=== PATIENT | female | born 1945 | race Native Hawaiian/Other Pacific Islander ===

== ENCOUNTER 2018-10-20 07:01 | Inpatient (IN) | payer MEDICARE ==
[2018-10-20] MEDS ORDERED: Iohexol 240 (50 ml) PO STA (07:41)
[2018-10-20] MEDS ORDERED: Sodium Chloride 0.9% 1,000 ML IV STA (07:41)
[2018-10-20] MEDS ORDERED: Sodium Chloride 0.9% 1,000 ML ONE (08:23)
[2018-10-20] MEDS ORDERED: Iohexol 240 (50 ml) ONE (08:24)
[2018-10-20 08:36] LABS: BASO % 0.2 % (0.0-2.0); EOS % 0.2 % (0.0-4.0); LYMPH # 1.9 K/uL (1.0-4.3); LYMPH % 12.9 % (20.0-40.0); MEAN CELL VOLUME 94.9 fL (81.0-99.0); MEAN CORPUSCULAR HEMOGLOBIN 29.6 pg (27.0-31.0); MEAN CORPUSCULAR HGB CONC 31.2 g/dL (33.0-37.0); MEAN PLATELET VOLUME 7.9 fL (7.2-11.7); MONO # 1.5 K/uL (0.0-0.8); MONO % 10.2 % (0.0-10.0); NEUT % 76.5 % (50.0-75.0); RBC 4.37 Mil/uL (3.80-5.20); RED CELL DISTRIBUTION WIDTH 13.2 % (11.5-14.5); WHITE BLOOD COUNT 14.4 K/uL (4.8-10.8)
[2018-10-20 08:46] LABS: ALB/GLOB RATIO 1.1 (1.0-2.1); ALBUMIN 4.1 g/dL (3.5-5.0); ALT/SGPT 37 U/L (9-52); AST/SGOT 34 U/L (14-36); BLOOD UREA NITROGEN 17 mg/dL (7-17); CALCIUM 9.2 mg/dl (8.6-10.4); GFR NON-AFRICAN AMERICAN > 60; LIPASE 111 U/L (23-300)
[2018-10-20 08:57] LABS: SQUAMOUS EPITHIAL 16 /hpf (0-5); URINE BACTERIA MANY (<OCC); URINE BILIRUBIN NEGATIVE (NEGATIVE); URINE BLOOD 3+ (NEGATIVE); URINE CLARITY Hazy (Clear); URINE COLOR Yellow (YELLOW); URINE GLUCOSE (UA) NORMAL (Normal); URINE LEUKOCYTE ESTERASE 3+ Leu/uL (Negative); URINE PROTEIN 2+ mg/dL (NEGATIVE); URINE UROBILINOGEN NORMAL mg/dL (0.2-1.0)
[2018-10-20] MEDS ORDERED: Iodixanol 320 MG/ML 100 ML BOTTLE IV ONE (09:05)
[2018-10-20] MEDS ORDERED: Enoxaparin 40 mg Syringe SC SCH (10:00)
--- NOTE | 2018-10-20 10:22 | CT ---
CT abdomen and pelvis HISTORY: Abdominal pain. COMPARISON: None available. Technique: Multiple contiguous axial images were performed through the abdomen and pelvis with the use of intravenous contrast. Subsequently, sagittal and coronal reformatted images were obtained. This CT exam was performed using one or more of the following dose reduction techniques: Automated exposure control, adjustment of the mA and/or kV according to patient size, and/or use of iterative reconstruction technique. Findings: Scattered atelectasis at the lung bases. No pleural or pericardial effusion. Fatty infiltration of the liver. Distended gallbladder. Punctate hypodensities in the spleen, too small to adequately characterize. Splenule. Nodularity of the adrenal glands. Pancreas is preserved. Small hiatal hernia. Right kidney: Peripheral ill-defined areas of low attenuation seen within the right renal parenchymal cortex with associated perinephric fat stranding suggestive for an acute pyelonephritis. Clinical correlation. No calculi or hydronephrosis. Left Kidney: No calculi or hydronephrosis. Thick-walled urinary bladder which may represent an underlying cystitis. Under distended left hemicolon. Fecal retention in the right hemicolon. Appendix not well identified. Few shotty para-aortic and inguinal lymph nodes. Few shotty mesenteric lymph nodes. Degenerative changes in the spine. Impression: 1. Peripheral ill-defined areas of low attenuation seen within the right renal parenchymal cortex with associated perinephric fat stranding suggestive for an acute pyelonephritis. Clinical correlation. 2. Thick-walled urinary bladder which may represent an underlying cystitis. Clinical correlation. 3. Fatty infiltration of the liver. Additional findings as above.
--- NOTE | 2018-10-20 10:49 | C.PDOC ---
History Of Present Illness 73 y/o female comes in complaining of dysuria, pelvic discomfort, abdominal discomfort, vomiting, and chills for the past 6 days, worsened for the last 2. Patient denies any fever, diarrhea, vaginal discharge or bleeding, or back pain. Patient has no other complaints. Time Seen by Provider: 10/20/18 07:15 Chief Complaint (Nursing): Abdominal Pain History Per: Patient History/Exam Limitations: no limitations Onset/Duration Of Symptoms: Days Current Symptoms Are (Timing): Still Present Past Medical History Reviewed: Historical Data, Nursing Documentation, Vital Signs Vital Signs: Last Vital Signs Temp 98.4 F 10/20/18 07:11 Pulse 89 10/20/18 07:11 Resp 16 10/20/18 07:11 BP 147/74 10/20/18 07:11 Pulse Ox 100 10/20/18 07:11 - Medical History PMH: HTN Family History: States: No Known Family Hx - Social History Hx Alcohol Use: Yes Hx Substance Use: No - Immunization History Hx Tetanus Toxoid Vaccination: No Hx Influenza Vaccination: Yes Hx Pneumococcal Vaccination: No Review Of Systems Except As Marked, All Systems Reviewed And Found Negative. Constitutional: Positive for: Chills. Negative for: Fever Gastrointestinal: Positive for: Vomiting, Other (abdominal discomfort). Negative for: Diarrhea Genitourinary: Positive for: Dysuria, Other (Pelvic discomfort). Negative for: Vaginal Discharge, Vaginal Bleeding Musculoskeletal: Negative for: Back Pain Physical Exam - Physical Exam Appears: Non-toxic, No Acute Distress Skin: Warm, Dry Head: Atraumatic, Normacephalic Eye(s): bilateral: Normal Inspection Oral Mucosa: Moist Neck: Supple Cardiovascular: Rhythm Regular, No Murmur Respiratory: Normal Breath Sounds, No Rales, No Rhonchi, No Wheezing Gastrointestinal/Abdominal: Tenderness (tenderness to lower abdomen, right more than left) Back: CVA Tenderness (to right side, mild) Extremity: Bilateral: Atraumatic, Normal ROM Neurological/Psych: Oriented x3, Normal Speech ED Course And Treatment - Laboratory Results Result Diagrams: 10/20/18 08:26 10/20/18 08:26 Lab Results: Total Bilirubin 1.0 mg/dL (0.2-1.3) 10/20/18 08:26 AST 34 U/L (14-36) 10/20/18 08:26 ALT 37 U/L (9-52) 10/20/18 08:26 Alkaline Phosphatase 85 U/L (38-126) 10/20/18 08:26 Total Protein 7.7 g/dL (6.3-8.3) 10/20/18 08:26 Albumin 4.1 g/dL (3.5-5.0) 10/20/18 08:26 Globulin 3.6 gm/dL (2.2-3.9) 10/20/18 08:26 Albumin/Globulin Ratio 1.1 (1.0-2.1) 10/20/18 08:26 Lipase 111 U/L (23-300) 10/20/18 08:26 Urine Color Yellow (YELLOW) 10/20/18 08:26 Urine Clarity Hazy (Clear) 10/20/18 08:26 Urine pH 5.0 (5.0-8.0) 10/20/18 08:26 Ur Specific Victor 1.012 (1.003-1.030) 10/20/18 08:26 Urine Protein 2+ mg/dL (NEGATIVE) H 10/20/18 08:26 Urine Glucose (UA) Normal mg/dL (Normal) 10/20/18 08:26 Urine Ketones Trace mg/dL (NEGATIVE) 10/20/18 08:26 Urine Blood 3+ (NEGATIVE) H 10/20/18 08:26 Urine Nitrate Negative (NEGATIVE) 10/20/18 08:26 Urine Bilirubin Negative (NEGATIVE) 10/20/18 08:26 Urine Urobilinogen Normal mg/dL (0.2-1.0) 10/20/18 08:26 Ur Leukocyte Esterase 3+ Nehemias/uL (Negative) H 10/20/18 08:26 Urine WBC (Auto) 632 /hpf (0-5) H 10/20/18 08:26 Urine RBC (Auto) 121 /hpf (0-3) H 10/20/18 08:26 Ur Squamous Epith Cells 16 /hpf (0-5) H 10/20/18 08:26 Urine Bacteria Many (<OCC) H 10/20/18 08:26 Ur Yeast w Hyphae Rare /lpf (NEGATIVE) H 10/20/18 08:26 O2 Sat by Pulse Oximetry: 100 (RA) Pulse Ox Interpretation: Normal - CT Scan/US Abd/Pel CT Other Rad Studies (CT/US): Read By Radiologist, Radiology Report Reviewed CT/US Interpretation: Findings: Scattered atelectasis at the lung bases. No pleural or pericardial effusion. Fatty infiltration of the liver. Distended g allbladder. Punctate hypodensities in the spleen, too small to adequately characterize. Splenule. Nodularity of the adrenal glands. Pancreas is preserved. Small hiatal hernia. Right kidney: Peripheral ill-defined areas of low attenuation seen within the right renal parenchymal cortex with associated perinephric fat stranding suggestive for an acute pyelonephritis. Clinical correlation. No calculi or hydronephrosis. Left Kidney: No calculi or hydronephrosis. Thick-walled urinary bladder which may represent an underlying cystitis. Under distended left hemicolon. Fecal retention in the right hemicolon. Appendix not well identified. Few shotty para-aortic and inguinal lymph nodes. Few shotty mesenteric lymph nodes. Degenerative changes in the spine. Impression: 1. Peripheral ill-defined areas of low attenuation seen within the right renal parenchymal cortex with associated perinephric fat stranding suggestive for an acute pyelonephritis. Clinical correlation. 2. Thick-walled urinary bladder which may represent an underlying cystitis. Clinical correlation. 3. Fatty infiltration of the liver. Additional findings as above. Progress Note: Labs, abd/pel CT, and UA ordered. Patient was given motrin, omnipaque, IV fluids, and rocephin. CT confirms pyelonephritis. Spoke to Dr. Bernal who accepts patient for admission. Disposition - Disposition Disposition: HOSPITALIZED Disposition Time: 11:40 Condition: FAIR - Clinical Impression Clinical Impression: Pyelonephritis - PA / [employer] IN [employer] / Resident Statement MD/ has reviewed & agrees with the documentation as recorded. - Scribe Statement The provider has reviewed the documentation as recorded by the Scribe Melyssa Ornelas All medical record entries made by the Gema were at my direction and personally dictated by me. I have reviewed the chart and agree that the record accurately reflects my personal performance of the history, physical exam, medical decision making, and the department course for this patient. I have also personally directed, reviewed, and agree with the discharge instructions and disposition. Decision To Admit - Pt Status Changed To: Hospital Disposition Of: Inpatient - Admit Certification Admit to Inpatient:: After my assessment, the patient will require hospitalization for at least two midnights. This is because of the severity of symptoms shown, intensity of services needed, and/or the medical risk in this patient being treated as an outpatient. - InPatient: Physician Admission Certification:: NEEDS IV ANTIBIOTICS FOR MORE THAN 2 DAYS - . Bed Request Type: Regular Admitting Physician: Jus Bernal Patient Diagnosis: Pyelonephritis
[2018-10-20 12:42] VITALS: RESP 20
[2018-10-20] MEDS ORDERED: Potassium Chloride 20 mEq ER Tab PO STA (13:54)
[2018-10-20] MEDS: Enoxaparin 40 mg Syringe SC SCH (15:18)
[2018-10-20] MEDS: (Novolog) Insulin Aspart, Recombinant 100 u/ml 10 ml vial SC SCH ×2 (17:10→22:17)
--- NOTE | 2018-10-20 18:03 | CP.PCM.PN ---
Subjective - Date & Time of Evaluation Date of Evaluation: 10/20/18 Time of Evaluation: 16:30 - Subjective Subjective: 73 years old female complaining of abdominal pain, burning micturation, chills, low grade fever, nausea, vomiting, generalized malaise for the past 6 days, worse for the past 2 days. She denies any cough, sore throat. Known to have a hy pertension, a non-insulin dependent diabetes mellitus, a CT scan of the abdomen revealed a right pyelonephritis. After urine and blood cultures, the patient was started empirically on Rocephin IV. Objective - Vital Signs/Intake and Output Vital Signs (last 24 hours): Temp Pulse Resp BP Pulse Ox 99.6 F 95 H 20 171/78 H 100 10/20/18 15:55 10/20/18 15:55 10/20/18 15:55 10/20/18 15:55 10/20/18 17:35 Intake and Output: 10/20/18 10/20/18 06:59 18:59 Intake Total 360 Balance 360 - Medications Medications: Current Medications Acetaminophen (Tylenol 325mg Tab) 650 mg PO Q6 PRN PRN Reason: Pain, moderate (4-7) Aspirin (Ecotrin) 81 mg PO DAILY [facility] Docusate Sodium (Colace) 100 mg PO BID [facility] Last Admin: 10/20/18 17:33 Dose: 100 mg Enalapril Maleate (Vasotec) 10 mg PO DAILY [facility] Last Admin: 10/20/18 13:51 Dose: Not Given Enoxaparin Sodium (Lovenox) 40 mg SC DAILY [facility] Last Admin: 10/20/18 15:18 Dose: 40 mg Famotidine (Pepcid) 20 mg PO DAILY PRN PRN Reason: Dyspepsia Ceftriaxone Sodium 1 gm/ (Sodium Chloride) 100 mls @ 100 mls/hr IVPB DAILY [facility]; Protocol Insulin Aspart (Novolog) 0 unit SC ACHS [facility]; Protocol Last Admin: 10/20/18 17:10 Dose: 1 unit Metformin HCl (Glucophage) 500 mg PO BRK [facility] Last Admin: 10/20/18 14:35 Dose: 500 mg Ondansetron HCl (Zofran Inj) 4 mg IVP Q6 PRN PRN Reason: Nausea/Vomiting - Labs Labs: 10/20/18 08:26 10/20/18 08:26 - Constitutional Appears: Well, No Acute Distress - Head Exam Head Exam: NORMAL INSPECTION - Eye Exam Eye Exam: Normal appearance Pupil Exam: NORMAL ACCOMODATION - ENT Exam ENT Exam: Normal Exam - Neck Exam Neck Exam: Normal Inspection - Respiratory Exam Respiratory Exam: Clear to Ausculation Bilateral, NORMAL BREATHING PATTERN - Cardiovascular Exam Cardiovascular Exam: REGULAR RHYTHM - GI/Abdominal Exam GI & Abdominal Exam: Soft, Normal Bowel Sounds Additional comments: Mild hypogastric and right flank tenderness. - Rectal Exam Rectal Exam: Deferred - Extremities Exam Extremities Exam: Normal Capillary Refill, Normal Inspection - Back Exam Back Exam: NORMAL INSPECTION - Neurological Exam Neurological Exam: Alert, Awake, Normal Gait, Oriented x3 - Psychiatric Exam Psychiatric exam: Anxious - Skin Skin Exam: Dry, Intact, Normal Color, Warm Assessment and Plan (1) Pyelonephritis Assessment & Plan: To continue IV Rocephin temporality. Status: Acute (2) Non-insulin treated type 2 diabetes mellitus Assessment & Plan: To continue Metformin and Insulin aspartate coverage. Status: Chronic
[2018-10-21] MEDS: (Novolog) Insulin Aspart, Recombinant 100 u/ml 10 ml vial SC SCH ×4 (08:09→22:25)
[2018-10-21] MEDS: Enoxaparin 40 mg Syringe SC SCH (10:07)
[2018-10-22] MEDS: (Novolog) Insulin Aspart, Recombinant 100 u/ml 10 ml vial SC SCH ×4 (08:33→21:23)
[2018-10-22] MEDS: Enoxaparin 40 mg Syringe SC SCH (10:47)
[2018-10-22 12:56] LABS: BLOOD UREA NITROGEN 11 mg/dL (7-17); CALCIUM 8.7 mg/dl (8.6-10.4); GFR NON-AFRICAN AMERICAN > 60
--- NOTE | 2018-10-22 17:54 | CP.PCM.PN ---
Subjective - Date & Time of Evaluation Date of Evaluation: 10/22/18 Time of Evaluation: 17:52 - Subjective Subjective: Patient is afebrile, with a mild cough and a right flank pain. Vomited once yesterday. No nausea today, appetite is still poor. Urine culture reveals E Coli sensitive to Rocephin. Will repeat CBC, CXR. Objective - Vital Signs/Intake and Output Vital Signs (last 24 hours): Temp Pulse Resp BP Pulse Ox 98.4 F 72 20 125/79 98 10/22/18 15:56 10/22/18 15:56 10/22/18 15:56 10/22/18 15:56 10/22/18 15:56 Intake and Output: 10/22/18 10/22/18 06:59 18:59 Intake Total 640 550 Balance 640 550 - Medications Medications: Current Medications Acetaminophen (Tylenol 325mg Tab) 650 mg PO Q6 PRN PRN Reason: Pain, moderate (4-7) Last Admin: 10/21/18 22:17 Dose: 650 mg Aspirin (Ecotrin) 81 mg PO DAILY [facility] Last Admin: 10/22/18 10:48 Dose: 81 mg Docusate Sodium (Colace) 100 mg PO BID [facility] Last Admin: 10/22/18 10:48 Dose: 100 mg Enalapril Maleate (Vasotec) 10 mg PO DAILY [facility] Last Admin: 10/22/18 10:47 Dose: 10 mg Enoxaparin Sodium (Lovenox) 40 mg SC DAILY [facility] Last Admin: 10/22/18 10:47 Dose: 40 mg Famotidine (Pepcid) 20 mg PO DAILY PRN PRN Reason: Dyspepsia Ceftriaxone Sodium 1 gm/ (Sodium Chloride) 100 mls @ 100 mls/hr IVPB DAILY [facility]; Protocol Last Admin: 10/22/18 10:46 Dose: 100 mls/hr Insulin Aspart (Novolog) 0 unit SC ACHS [facility]; Protocol Last Admin: 10/22/18 16:38 Dose: Not Given Metformin HCl (Glucophage) 500 mg PO BRK [facility] Last Admin: 10/22/18 08:33 Dose: 500 mg Ondansetron HCl (Zofran Inj) 4 mg IVP Q6 PRN PRN Reason: Nausea/Vomiting Last Admin: 10/21/18 20:10 Dose: 4 mg - Labs Labs: 10/20/18 08:26 10/22/18 12:11 - Constitutional Appears: Well, No Acute Distress - Head Exam Head Exam: NORMAL INSPECTION - Eye Exam Eye Exam: Normal appearance Pupil Exam: NORMAL ACCOMODATION - ENT Exam ENT Exam: Normal Exam - Neck Exam Neck Exam: Normal Inspection - Respiratory Exam Respiratory Exam: Clear to Ausculation Bilateral, NORMAL BREATHING PATTERN - Cardiovascular Exam Cardiovascular Exam: REGULAR RHYTHM - GI/Abdominal Exam GI & Abdominal Exam: Tenderness, Normal Bowel Sounds Additional comments: Mild tenderness of the right flank. - Rectal Exam Rectal Exam: Deferred - Extremities Exam Extremities Exam: Normal Inspection - Back Exam Back Exam: tenderness Additional comments: Mild tenderness right flank. - Neurological Exam Neurological Exam: Alert, Awake, Oriented x3 - Psychiatric Exam Psychiatric exam: Anxious - Skin Skin Exam: Dry, Intact, Normal Color, Warm Assessment and Plan (1) Pyelonephritis Status: Acute (2) Non-insulin treated type 2 diabetes mellitus Status: Chronic
[2018-10-23 01:01] VITALS: O2SAT 96
[2018-10-23] MEDS: (Novolog) Insulin Aspart, Recombinant 100 u/ml 10 ml vial SC SCH ×2 (07:47→12:22)
[2018-10-23 07:53] VITALS: BP 130/81; PULSE 73; TEMP 98.7
[2018-10-23 08:00] LABS: BASO % 0.3 % (0.0-2.0); EOS # 0.1 K/uL (0.0-0.7); EOS % 1.4 % (0.0-4.0); HEMOGLOBIN 11.7 g/dL (11.0-16.0); LYMPH # 1.6 K/uL (1.0-4.3); LYMPH % 19.6 % (20.0-40.0); MEAN CORPUSCULAR HEMOGLOBIN 31.8 pg (27.0-31.0); MEAN CORPUSCULAR HGB CONC 34.2 g/dL (33.0-37.0); MEAN PLATELET VOLUME 7.6 fL (7.2-11.7); MONO # 1.3 K/uL (0.0-0.8); MONO % 15.8 % (0.0-10.0); NEUT % 62.9 % (50.0-75.0); RBC 3.69 Mil/uL (3.80-5.20); RED CELL DISTRIBUTION WIDTH 13.5 % (11.5-14.5)
[2018-10-23 08:29] LABS: ALBUMIN 3.4 g/dL (3.5-5.0); ALT/SGPT 36 U/L (9-52); AST/SGOT 53 U/L (14-36); BLOOD UREA NITROGEN 14 mg/dL (7-17); CALCIUM 8.7 mg/dl (8.6-10.4); GFR NON-AFRICAN AMERICAN > 60
[2018-10-23] MEDS: Enoxaparin 40 mg Syringe SC SCH (10:17)
[2018-10-23] MEDS ORDERED: Potassium Chloride 20 mEq ER Tab PO ONE (11:54)
--- NOTE | 2018-10-23 15:37 | RAD ---
Date of service: 10/23/2018 HISTORY: Cough COMPARISON: No prior. TECHNIQUE: Chest PA and lateral FINDINGS: LUNGS: No consolidation the vague increased opacity at the left lung base laterally is probably due to summation of soft tissues. PLEURA: No significant pleural effusion identified. No pneumothorax apparent. CARDIOVASCULAR: There is presence of aortic atherosclerotic calcification on x-ray. Mild cardiomegaly present No significant appearing pulmonary venous congestion. OSSEOUS STRUCTURES: Thoracic spondylosis. VISUALIZED UPPER ABDOMEN: Normal. OTHER FINDINGS: None. IMPRESSION: No acute cardiopulmonary pathology noted. Specifically no consolidative infiltrate.
--- NOTE | 2018-10-24 10:50 | CP.PCM.DIS ---
Provider - Provider Date of Admission: 10/20/18 11:39 Attending physician: Jus Bernal MD Primary care physician: Dr Preeti Bernal Time Spent in preparation of Discharge (in minutes): 45 Diagnosis - Discharge Diagnosis (1) Pyelonephritis Status: Acute (2) Non-insulin treated type 2 diabetes mellitus Status: Chronic Hospital Course - Lab Results Lab Results: Micro Results 10/20/18 18:58 Blood-Venous Blood Culture - Preliminary NO GROWTH AFTER 3 DAYS 10/20/18 18:58 Blood-Venous Blood Culture - Preliminary NO GROWTH AFTER 3 DAYS 10/20/18 08:26 Urine Random Urine Culture - Final Escherichia Coli Most Recent Lab Values WBC 8.0 K/uL (4.8-10.8) 10/23/18 07:46 RBC 3.69 Mil/uL (3.80-5.20) L 10/23/18 07:46 Hgb 11.7 g/dL (11.0-16.0) 10/23/18 07:46 Hct 34.3 % (34.0-47.0) 10/23/18 07:46 MCV 93.0 fL (81.0-99.0) 10/23/18 07:46 MCH 31.8 pg (27.0-31.0) H 10/23/18 07:46 MCHC 34.2 g/dL (33.0-37.0) 10/23/18 07:46 RDW 13.5 % (11.5-14.5) 10/23/18 07:46 Plt Count 229 K/uL (130-400) 10/23/18 07:46 MPV 7.6 fL (7.2-11.7) 10/23/18 07:46 Neut % (Auto) 62.9 % (50.0-75.0) 10/23/18 07:46 Lymph % (Auto) 19.6 % (20.0-40.0) L 10/23/18 07:46 Johnson % (Auto) 15.8 % (0.0-10.0) H 10/23/18 07:46 Eos % (Auto) 1.4 % (0.0-4.0) 10/23/18 07:46 Baso % (Auto) 0.3 % (0.0-2.0) 10/23/18 07:46 Neut # (Auto) 5.0 K/uL (1.8-7.0) 10/23/18 07:46 Lymph # (Auto) 1.6 K/uL (1.0-4.3) 10/23/18 07:46 Johnson # (Auto) 1.3 K/uL (0.0-0.8) H 10/23/18 07:46 Eos # (Auto) 0.1 K/uL (0.0-0.7) 10/23/18 07:46 Baso # (Auto) 0.0 K/uL (0.0-0.2) 10/23/18 07:46 Sodium 137 mmol/L (132-148) 10/23/18 07:46 Potassium 3.4 mmol/L (3.6-5.2) L 10/23/18 07:46 Chloride 101 mmol/L (98-107) 10/23/18 07:46 Carbon Dioxide 26 mmol/L (22-30) 10/23/18 07:46 Anion Gap 13 (10-20) 10/23/18 07:46 BUN 14 mg/dL (7-17) 10/23/18 07:46 Creatinine 0.9 mg/dL (0.7-1.2) 10/23/18 07:46 Est GFR ( Amer) > 60 10/23/18 07:46 Est GFR (Non-Af Amer) > 60 10/23/18 07:46 POC Glucose (mg/dL) 175 mg/dL (65-110) H 10/23/18 11:04 Random Glucose 225 mg/dL (65-105) H D 10/23/18 07:46 Calcium 8.7 mg/dl (8.6-10.4) 10/23/18 07:46 Total Bilirubin 0.3 mg/dL (0.2-1.3) 10/23/18 07:46 AST 53 U/L (14-36) H D 10/23/18 07:46 ALT 36 U/L (9-52) 10/23/18 07:46 Alkaline Phosphatase 85 U/L (38-126) 10/23/18 07:46 Total Protein 7.0 g/dL (6.3-8.3) 10/23/18 07:46 Albumin 3.4 g/dL (3.5-5.0) L 10/23/18 07:46 Globulin 3.6 gm/dL (2.2-3.9) 10/23/18 07:46 Albumin/Globulin Ratio 1.0 (1.0-2.1) 10/23/18 07:46 Lipase 111 U/L (23-300) 10/20/18 08:26 Urine Color Yellow (YELLOW) 10/20/18 08:26 Urine Clarity Hazy (Clear) 10/20/18 08:26 Urine pH 5.0 (5.0-8.0) 10/20/18 08:26 Ur Specific Sharon 1.012 (1.003-1.030) 10/20/18 08:26 Urine Protein 2+ mg/dL (NEGATIVE) H 10/20/18 08:26 Urine Glucose (UA) Normal mg/dL (Normal) 10/20/18 08:26 Urine Ketones Trace mg/dL (NEGATIVE) 10/20/18 08:26 Urine Blood 3+ (NEGATIVE) H 10/20/18 08:26 Urine Nitrate Negative (NEGATIVE) 10/20/18 08:26 Urine Bilirubin Negative (NEGATIVE) 10/20/18 08:26 Urine Urobilinogen Normal mg/dL (0.2-1.0) 10/20/18 08:26 Ur Leukocyte Esterase 3+ Nehemias/uL (Negative) H 10/20/18 08:26 Urine WBC (Auto) 632 /hpf (0-5) H 10/20/18 08:26 Urine RBC (Auto) 121 /hpf (0-3) H 10/20/18 08:26 Ur Squamous Epith Cells 16 /hpf (0-5) H 10/20/18 08:26 Urine Bacteria Many (<OCC) H 10/20/18 08:26 Ur Yeast w Hyphae Rare /lpf (NEGATIVE) H 10/20/18 08:26 - Hospital Course Hospital Course: 73 years old female was brought by the family to the ED at [facility] complaining of a generalized weakness, lower abdominal pain, chills, burning micturation for about a week, worse for the past few days. In the ED, a CT scan of the abdomen and pelvis revealed a right pyelonephritis, a WBC: 14,000. After urine and blood cultures were done, she was started on Rocephin 1 g IV qd empirically. She is known to have a NIDDM, a hypertension. Blood cultures were negative. Urine culture revealed E. Coli sensitive to Rocephin, Cephalexin. The patient improved rapidly. she remained afebrile. Right flank pain resolved. Her WBC became normal. She was discharged home on 10/23/2018 in a stable condition. She will switched to Cephalexin 500 mg PO q 6H for another one week. She will see me in the office in one week for follow up urine culture. She will continue all her home medications. - Date & Time of H&P Date of H&P: 10/20/18 Discharge Exam - Head Exam Head Exam: NORMAL INSPECTION - Eye Exam Eye Exam: Normal appearance Pupil Exam: NORMAL ACCOMODATION - ENT Exam ENT Exam: Normal Exam - Neck Exam Neck exam: Normal Inspection - Respiratory Exam Respiratory Exam: Clear to PA & Lateral, NORMAL BREATHING PATTERN - Cardiovascular Exam Cardiovascular Exam: REGULAR RHYTHM - GI/Abdominal Exam GI & Abdominal Exam: Normal Bowel Sounds, Soft - Rectal Exam Rectal Exam: Deferred - Exam Exam: NORMAL INSPECTION External exam: NORMAL EXTERNAL EXAM - Extremities Exam Extremities exam: normal inspection - Back Exam Back exam: NORMAL INSPECTION - Neurological Exam Neurological exam: Alert, CN II-XII Intact, Normal Gait, Oriented x3 - Psychiatric Exam Psychiatric exam: Anxious - Skin Skin Exam: Dry, Intact, Normal Color, Warm Discharge Plan - Discharge Medications Prescriptions: Cephalexin [Keflex] 500 mg PO QID 7 Days #30 cap - Follow Up Plan Condition: FAIR Disposition: HOME/ ROUTINE Instructions: Cephalexin, Kidney Infection (DC) Additional Instructions: F/U with Dr Bernal in one week. Clinical Quality Measures - CQM - Heart Failure Will be discharged to: Home Follow Up Date (must be within 7 days from discharge): 10/31/18 Follow Up Time: 14:00 - Date & Time of Discharge Summary Date of Discharge Summary: 10/31/18 Time of Discharge Summary: 10:53
== END 2018-10-23 16:41 | disposition home or self-care (01) | DRG 690 ==
LOC: C.ER 07:01 → C.9E 11:39 → C.3T 11:53
PROVIDERS: ADMIT Internal Medicine Cardiovascular Disease; ATTEND Internal Medicine Cardiovascular Disease
DX: N12 Tubulo-interstitial nephritis, not specified as acute or chronic (principal); I10 Essential (primary) hypertension; E11.9 Type 2 diabetes mellitus without complications; Z79.4 Long term (current) use of insulin